=== PATIENT | female | born 1980 | race Two or more races ===

== ENCOUNTER 2019-01-20 09:30 | Emergency (ER) | payer MEDICAID ==
[~2019-01-20] VITALS: Ht 162.6 cm; Wt 96.3 kg
--- NOTE | 2019-01-20 10:30 | NUR ---
PT BIB P/V FOR BURNING CP "WHE STRESED OUT." PT ALSO REPORTS LOWER ABD PAIN/LEFT FLANK PAIN WITH NO URINARY SYMTOMS. PT STATES, "I THINK MAYBE SOMEONE PUT SOMETHING IN MY SODA." CHART UP FOR MD. WAITING FOR ORDERS.
[2019-01-20] MEDS ORDERED: SODIUM CHLORIDE FLUSH 10ML SYR IVF ONE (11:00)
[2019-01-20 11:14] LABS: BASOPHILS # (AUTO) 0.03 x10^3/uL (0-0.1); BASOPHILS % (AUTO) 1 % (0-1); EOSINOPHILS % (AUTO) 2 % (1-7); LYMPHOCYTES # (AUTO) 1.28 x10^3/uL (1-3.4); LYMPHOCYTES % (AUTO) 24 % (22-44); MD NO; MEAN CORPUSCULAR HEMOGLOBIN 28.5 pg (27.0-34.8); MEAN CORPUSCULAR HGB CONC 33.5 g/dL (32.4-35.8); MEAN CORPUSCULAR VOLUME 85.2 fL (80-100); MEAN PLATELET VOLUME 10.3 fL (7.4-10.4); MONOCYTES # (AUTO) 0.41 x10^3/uL (0.2-0.8); MONOCYTES % (AUTO) 8 % (2-9); NEUTROPHILS # (AUTO) 3.44 x10^3/uL (1.8-6.8); NEUTROPHILS % (AUTO) 65 % (42-75); PLATELET COUNT 209 x10^3/uL (130-400); RED BLOOD COUNT 4.87 x10^6/uL (3.82-5.3); RED CELL DISTRIBUTION WIDTH 14.5 % (9.6-15.2)
[2019-01-20 11:16] LABS: ALBUMIN 3.5 g/dL (3.4-5.0); ANION GAP 6 mmol/L (5-15); CALCIUM 9.1 mg/dL (8.5-10.1); CHLORIDE 107 mmol/L (98-107)
[2019-01-20 11:22] LABS: ALANINE AMINOTRANSFERASE 17 U/L (12-78); ALKALINE PHOSPHATASE 42 U/L (45-117); BILIRUBIN,TOTAL 0.6 mg/dL (0.2-1.0); CREATININE 0.77 mg/dL (0.55-1.02); TOTAL PROTEIN 7.5 g/dL (6.4-8.2); TROPONIN I < 0.015 ng/mL (0.000-0.045)
--- NOTE | 2019-01-20 12:53 | NUR ---
3 P'S ADDRESSED. PT UP TO RESTROOM WITH STEADY GAIT. PT GIVEN WATER. OK PER DR. RODRIGUEZ.
--- NOTE | 2019-01-20 13:55 | NUR ---
CHART UP FOR MD RECHECK. PT AWARE.
[2019-01-20 14:20] VITALS: BP 122/50
== END 2019-01-20 14:24 | disposition home or self-care (01) ==
LOC: ED 13:11
DX: R07.89 Other chest pain (principal); F41.1 Generalized anxiety disorder; R00.2 Palpitations; R06.02 Shortness of breath
CPT/HCPCS: 36415; 71045; 71275; 80053; 83880; 84443; 84484; 84703; 85025; 85379; 93005; 99284